=== PATIENT | female | born 1940 | race Caucasian/White ===

== ENCOUNTER 2017-04-19 11:49 | Day surgery (SDC) | payer MEDICARE, BC ==
[2017-04-17 15:20] VITALS: BMI 22.4
[~2017-04-19 11:49] MED LIST: ALBUTEROL NEB (CONC) 2.5 MG/0.5 ML INHALATION ONE; ATROPINE SULFATE 0.4 MG/ML 1 ML VIAL IM ONE; LACTATED RINGERS 1,000 ML IV ONE; LACTATED RINGERS 1,000 ML IV SCH; LIDOCAINE 2% (PF) 20 MG/ML 2 ML AMP INHALATION ONE
[2017-04-19 12:33] LABS: Glucose,Whole Blood 108 mg/dL (75-99)
[2017-04-19 12:43] VITALS: RESP 16; TEMP 99.3
[2017-04-19] MEDS ORDERED: HYDROCORTISONE SUCCINATE 100 MG/2 ML VIAL IVP ONE (12:45)
[2017-04-19] MEDS ORDERED: MIDAZOLAM 2 MG/2 ML VIAL ONE (13:15)
[2017-04-19] MEDS ORDERED: fentaNYL (PF) 50 MCG/ML 2 ML AMP ONE (13:15)
[2017-04-19] MEDS ORDERED: GLYCOPYRROLATE 0.2 MG/ML 2 ML VIAL ONE (13:15)
[2017-04-19] MEDS ORDERED: PROPOFOL 10 MG/ML 20 ML VIAL IV ONE (13:15)
[2017-04-19 13:57] VITALS: BP 168/84; PULSE 98
[2017-04-19 18:13] LABS: Appearance,BF Hazy; Color,BF Red; Nucleated Cells, Body Fluid 160 /uL
[2017-04-19 18:14] LABS: RBC, Body Fluid 6930 /uL
[2017-04-19 18:47] LABS: Mononuclear WBC,Body Fluid 9 %; Polynuclear WBC,Body Fluid 91 %
--- NOTE | 2017-04-19 18:56 | PCN ---
PROCEDURE NOTE PROCEDURE: Bronchoscopy, airway examination, therapeutic lavage, BAL right middle lobe. PREOPERATIVE DIAGNOSIS: Right middle lobe syndrome. POSTOPERATIVE DIAGNOSIS: Normal airway exam. DESCRIPTION OF PROCEDURE: There was informed consent. There was universal timeout. The operators were Dr. Vela and Dr. Parks. PRODUCTION CONTROL EXPEDITER provided unconscious sedation with general anesthesia. The patient's procedure took place in room #2. After the patient was adequately sedated and being fully monitored, the bronchoscope was inserted through the right nostril. It passed through the right nasopharynx into the oropharynx. The hypopharynx was identified and topicalized. The hypopharyngeal structures, including anterior commissure, true cords, false cords, arytenoids, piriform sinuses, right and left valleculae and epiglottis, all appeared normal. There were some secretions noted in the hypopharynx, particularly on the left side. After topicalization, the bronchoscope was pushed through the glottic opening into the trachea. Trachea appeared normal. Tracheal ubaldo was sharp. The right and left mainstem were topicalized. The right upper lobe and its 3 segments, the right middle lobe in its 2 segments, the right lower lobe and its 5 segments, the left upper lobe proper and its 2 segments, the lingula and its 2 segments, and the left lower lobe with its 4 segments all had normal anatomical formation. Of note was the fact that there was no obstruction to the right middle lobe. There were some secretions noted in the right middle lobe. There was no right middle lobe syndrome. There was no tumor obstructing the right middle lobe and there was no deformity of the opening of the right middle lobe or reduced entry diameter which would cause right middle lobe collapse. I suspect it all relates to secretions and mucus. Next the bronchoscope was wedged into the right middle lobe. BAL took place. Additional secretions were removed with the bronchoscope with the assistance of saline lavage. The patient tolerated the procedure well and will be recovered. Pictures were taken for Dr. Ramirez. No additional recommendations are made. MMODL / IJN: [id number] /
== END 2017-04-19 14:51 | disposition home or self-care (01) ==
LOC: ORWHC2ENDO 11:49
PROVIDERS: ATTEND Internal Medicine Critical Care Medicine
DX: J44.1 Chronic obstructive pulmonary disease with (acute) exacerbation (principal); J96.11 Chronic respiratory failure with hypoxia; Z87.891 Personal history of nicotine dependence; J98.11 Atelectasis; K44.9 Diaphragmatic hernia without obstruction or gangrene; K21.9 Gastro-esophageal reflux disease without esophagitis; E03.9 Hypothyroidism, unspecified; R00.0 Tachycardia, unspecified; Z79.82 Long term (current) use of aspirin; Z79.51 Long term (current) use of inhaled steroids; Z79.52 Long term (current) use of systemic steroids; Z79.899 Other long term (current) drug therapy; Z88.1 Allergy status to other antibiotic agents; Z88.5 Allergy status to narcotic agent
CPT/HCPCS: 94640; 87798 ×3; 87496; 87498; 87529; 88108; 88305; 89050; 87252; 87502; 87634; 87070; 87205; 87116; 87102; 87077; 87186; 87206; 31624; J2250; J0461; J1720; J3010; J2704; J2001

== ENCOUNTER 2017-07-19 16:08 | Observation (INO) | payer MEDICARE, BC ==
[2017-07-19] MEDS ORDERED: IPRATROPIUM-ALBUTEROL 3 ML NEB INHALATION PRN (17:07)
--- NOTE | 2017-07-19 17:07 | ED ---
General Adult HPI - General Chief complaint: Shortness of Breath Stated complaint: Lung mass Time Seen by Provider: 07/19/17 16:51 Source: patient, EMS, RN notes reviewed Mode of arrival: EMS Limitations: no limitations - History of Present Illness Initial comments: Patient is a pleasant 77-year-old female presenting to the emergency department as a transfer from [facility]. Patient has felt short of breath for the past 2 days. Patient does have a history of known COPD. No fevers. Patient has been somewhat fatigued. Patient went to the hospital there and found to have questionable mass on chest x-ray. Computed tomography scan did confirm this. In addition patient did have hyponatremia. Patient states she has been dealing intermittently with hyponatremia over the past several months. Patient states she had a normal computed tomography scan of her chest done back in March that was reported as normal. Patient states dyspnea is mild while at rest. - Related Data Home Medications Medication Instructions Recorded Confirmed ALPRAZolam [Xanax] 0.25 mg PO BID 07/06/15 04/17/17 Albuterol Sulfate [Proair Hfa] 2 puff INHALATION RT-Q6H PRN 07/06/15 04/17/17 Budesonide/Formoterol Fumarate 2 puff INHALATION RT-BID 07/06/15 04/17/17 [Symbicort 160-4.5 Mcg Inhaler] Calcium Carbonate [Calcium] 500 mg PO DAILY 07/06/15 04/17/17 Latanoprost [Xalatan 0.005%] 1 drop BOTH EYES HS 07/06/15 04/17/17 Tiotropium [place] [Spiriva] 1 puff INHALATION RT-DAILY@1200 07/06/15 04/17/17 Diltiazem HCl 30 mg PO BID 09/09/15 04/17/17 Cholecalciferol (Vitamin D3) 2,000 unit PO DAILY 04/17/17 04/17/17 [Vitamin D3] Ipratropium-Albuterol Nebulize 3 ml INHALATION QID 04/17/17 04/17/17 [Duoneb 0.5 mg-3 mg/3 ml Soln] Levothyroxine Sodium [Levoxyl] 112 mcg PO DAILY 04/17/17 04/17/17 Alendronate Sodium [Fosamax] 70 mg PO WE 07/19/17 07/19/17 Aspirin [Adult Low Dose Aspirin EC] 81 mg PO DAILY 07/19/17 07/19/17 Selenium 200 mcg PO DAILY 07/19/17 07/19/17 Timolol 0.5% Ophth Soln [Timoptic 1 drop BOTH EYES BID 07/19/17 07/19/17 0.5% Ophth Soln] Allergies Allergy/AdvReac Type Severity Reaction Status Date / Time doxycycline Allergy SICK, DIZZY Verified 07/19/17 17:01 morphine Allergy Nausea & Verified 07/19/17 17:01 Vomiting Review of Systems ROS Statement: Those systems with pertinent positive or pertinent negative responses have been documented in the HPI. ROS Other: All systems not noted in ROS Statement are negative. Constitutional: Denies: fever Eyes: Denies: eye pain ENT: Denies: ear pain Respiratory: Reports: dyspnea Cardiovascular: Denies: chest pain Endocrine: Reports: fatigue Gastrointestinal: Denies: abdominal pain Genitourinary: Denies: dysuria Musculoskeletal: Denies: back pain Skin: Denies: rash Neurological: Denies: headache Past Medical History Past Medical History: COPD, Eye Disorder, GERD/Reflux, Skin Disorder, Thyroid Disorder Additional Past Medical History / Comment(s): HX TACHYCARDIA. GLAUCOMA NILS. Hiatal Hernia. Using Oxygen, 2L NC PRN. RECENT EXAC OF COPD. ABRASIONS TO RLL. History of Any Multi-Drug Resistant Organisms: MRSA Date of last positivie culture/infection: 04/19/17 MDRO Source:: BRONCH WASH Past Surgical History: Adenoidectomy, Appendectomy, Hernia Repair, Hysterectomy , Orthopedic Surgery, Tonsillectomy Additional Past Surgical History / Comment(s): Nils Cataract, RT Torn Rotator Cuff Repair, Nasal Surgery, 01-07-16 lap viktoria fundoplasty Past Anesthesia/Blood Transfusion Reactions: No Reported Reaction Past Psychological History: Anxiety Smoking Status: Former smoker Past Alcohol Use History: Rare Past Drug Use History: None Reported - Past Family History Mother Family Medical History: CVA/TIA Father Family Medical History: Hypertension, Myocardial Infarction ([place]) Brother(s) Family Medical History: Cancer Additional Family Medical History / Comment(s): X3 BROTHERS General Exam Limitations: no limitations General appearance: alert, in no apparent distress Head exam: Present: atraumatic Eye exam: Present: normal appearance, PERRL ENT exam: Present: normal oropharynx Neck exam: Present: normal inspection Respiratory exam: Present: decreased breath sounds Cardiovascular Exam: Present: regular rate, normal rhythm GI/Abdominal exam: Present: soft. Absent: tenderness Extremities exam: Present: pedal edema (+1 bilateral). Absent: calf tenderness Back exam: Present: normal inspection Neurological exam: Present: alert Psychiatric exam: Present: normal affect, normal mood Skin exam: Present: normal color Course Vital Signs 07/19/17 16:11 Temperature 97.8 F Pulse Rate 101 H Respiratory 20 Rate Blood Pressure 155/79 O2 Sat by Pulse 93 L Oximetry - Reevaluation(s) Reevaluation #1: 07/19/17 17:07 CT report is not present at this time and we are contacting [facility] to have this faxed. Dr. palumbo has been paged for admission for hospital call. 07/19/17 17:11 Case was discussed with Dr. palumbo, who will admit. Disposition Clinical Impression: Dyspnea, Lung mass, Hyponatremia Disposition: ADMITTED IP TO THIS HOSP Is patient prescribed a controlled substance at d/c from ED?: No Referrals: Zeb Brar MD [Primary Care Provider] - 1-2 days Decision Time: 17:07
[2017-07-19] MEDS ORDERED: SODIUM CHLORIDE 0.9% 1,000 ML IV SCH (17:15)
[2017-07-19] MEDS ORDERED: methylPREDNISolone SOD SUCCI 125 MG/2 ML VIAL IV SCH (18:00)
[2017-07-19] MEDS ORDERED: IPRATROPIUM-ALBUTEROL 3 ML NEB INHALATION SCH (20:00)
[2017-07-19 20:04] LABS: Glucose,Whole Blood 265 mg/dL (75-99)
[2017-07-19 21:37] VITALS: RESP 16
[2017-07-19] MEDS: INSULIN ASPART 100 UNIT/ML 1 ML 10 ML VIAL SQ SCH (21:39)
[2017-07-19] MEDS ORDERED: LATANOPROST 0.005% OPHTH DROPS 2.5 ML BTL BOTH EYES SCH (22:45)
--- NOTE | 2017-07-19 23:26 | HP ---
HISTORY AND PHYSICAL DATE OF SERVICE: July 19, 2017. PRESENTING COMPLAINT: Short of breath. HISTORY OF PRESENTING COMPLAINT: This is a pleasant 77-year-old patient of Dr. Verma whose chronic stable medical conditions include GERD, hypothyroid, COPD. The patient has had low sodium for about 3 months. Has been given salt tablets. The patient presented here from [facility]. The patient has been having shortness of breath for 1 day. Some wheezing just felt funny. Slight cough. No phlegm. No fever. No chills. Appetite has been okay. CT scan did show a lung mass. Patient did say that she had a previous CT scan that was unremarkable. Hence patient was transferred down here. Patient put on IV Solu-Medrol and nebulized bronchodilators for COPD exacerbation. Pulmonary was consulted. The patient does feel a bit tired. REVIEW OF SYSTEMS: Constitutional tired. HEENT none. Respiratory as above. Cardiovascular none. Gastrointestinal heartburn. Genitourinary: None. Musculoskeletal: None. Dermatologic, hematologic, lymphatic none. Psychiatry none. Neurological generalized weakness. PAST MEDICAL HISTORY: COPD, MRSA infection in the lung, GERD, hypothyroid, hyponatremia. Additional past medical history, uses oxygen 2 L p.r.n., glaucoma, bilateral. PAST SURGICAL HISTORY: Adenoidectomy, appendectomy, hernia repair, hysterectomy, tonsillectomy, bilateral cataract, right torn rotator cuff, Josue fundoplasty, bronchoscopy in April of this year. SOCIAL HISTORY: The patient smoked for close to 49 years about a pack a day, stopped in 2007. Alcohol rarely. Lives with her . FAMILY HISTORY: Three brothers had cancer. HOME MEDICATIONS: 1. Timolol 0.5% 1 drop to both eyes b.i.d. 2. Fosamax 70 mg on Monday. 3. Selenium 200 mcg a day. 4. Aspirin 81 mg a day. 5. Spiriva 1 puff daily. 6. Levoxyl 112 mcg a day. 7. Xalatan 0.05% 1 drop to both eyes q.h.s. 8. DuoNeb q.i.d. 9. Diltiazem 30 mg b.i.d. 10.Vitamin D3 2000 units p.o. daily. 11.Calcium 500 mg p.o. daily. 12.Symbicort 160/4.5, 2 puffs b.i.d. 13.Xanax 0.25 b.i.d. 14.Albuterol 2 puffs q.6h p.r.n. ALLERGIES: TO DOXYCYCLINE AND MORPHINE. PHYSICAL EXAMINATION: Temperature 96.7, pulse 99, respiration 16, blood pressure 120/60, pulse ox 99% on room air. General appearance: Average built, sitting up, tired appearing. Eyes pupils are equal. Conjunctivae normal. HEENT: External appearance of nose and ears normal. Oral cavity normal. Neck JVD not raised. Mass not palpable. Respiratory effort increased. LUNGS: Diminished breath sounds prolonged expiration. Cardiovascular 1st and 2nd sounds normal, no edema. ABDOMEN: Soft, nontender. Liver and spleen not palpable. Lymphatics: No lymph nodes palpable in the neck and axilla. PSYCHIATRY: Alert and oriented x3. Mood and affect normal. Neurological: Pupils equal. Cranial nerves grossly intact. Power and sensation grossly intact. INVESTIGATIONS: I do not have the blood work in front of me. CT chest was to show a mass. ASSESSMENT: 1. Acute chronic obstructive pulmonary disease exacerbation in an ex-smoker. 2. Gastroesophageal reflux disease. 3. Anxiety not otherwise specified. 4. Hyponatremia could be SIADH from the malignancy. 5. Lung mass suspicious for malignancy. PLAN: Pulmonary was consulted. Home medications are resumed. Patient is put on bronchodilators steroids. Once I will have the results I will discuss with her especially after the patient is seen by Pulmonary. Copy to Dr. Verma. In the meantime, patient will be put on fluid restriction. We will check serum urine osmolality and avoid free fluids. MMODL / IJN: [id number] /
[2017-07-19 23:39] LABS: Basophils % (A) 0 %; Eosinophils % (A) 0 %; HCT 39.4 % (34.0-46.0); HGB 12.9 gm/dL (11.4-16.0); Lymphocytes # (A) 0.3 k/uL (1.0-4.8); Lymphocytes % (A) 3 %; MCHC 32.6 g/dL (31.0-37.0); MCV 101.1 fL (80.0-100.0); Mean Platelet Volume 6.3; Monocytes # (A) 0.2 k/uL (0-1.0); Monocytes % (A) 2 %; Neutrophils # (A) 8.6 k/uL (1.3-7.7); Neutrophils % (A) 94 %; Platelet Count 354 k/uL (150-450); RBC 3.89 m/uL (3.80-5.40); RDW 12.8 % (11.5-15.5); WBC 9.1 k/uL (3.8-10.6)
[2017-07-19 23:51] LABS: ALT 51 U/L (9-52); AST 42 U/L (14-36); Albumin 3.4 g/dL (3.5-5.0); Alkaline Phosphatase 46 U/L (38-126); Anion Gap 13 mmol/L; Blood Urea Nitrogen 13 mg/dL (7-17); Calcium 9.3 mg/dL (8.4-10.2); Carbon Dioxide 25 mmol/L (22-30); Chloride 94 mmol/L (98-107); Glucose 158 mg/dL (74-99); Potassium 3.8 mmol/L (3.5-5.1); Sodium 132 mmol/L (137-145); Total Bilirubin 0.2 mg/dL (0.2-1.3); Total Protein 6.4 g/dL (6.3-8.2)
[2017-07-19] MEDS: ALPRAZolam 0.25 MG TAB PO SCH (23:57)
[2017-07-19] MEDS: DILTIAZEM ORAL 30 MG TAB PO SCH (23:58)
[2017-07-19] MEDS: TIMOLOL 0.5% OPHTH DROPS 5 ML BTL BOTH EYES SCH (23:58)
[2017-07-19] MEDS: methylPREDNISolone SOD SUCCI 40 MG/ML 1 ML VIAL IV SCH (23:59)
[2017-07-20] MEDS: IPRATROPIUM-ALBUTEROL 3 ML NEB INHALATION SCH ×6 (00:50→11:25)
[2017-07-20] MEDS ORDERED: LEVOTHYROXINE 112 MCG TAB PO SCH (06:30)
[2017-07-20 07:07] LABS: Glucose,Whole Blood 188 mg/dL (75-99)
[2017-07-20] MEDS: TIMOLOL 0.5% OPHTH DROPS 5 ML BTL BOTH EYES SCH (07:41)
[2017-07-20] MEDS: INSULIN ASPART 100 UNIT/ML 1 ML 10 ML VIAL SQ SCH ×2 (07:41→12:37)
[2017-07-20] MEDS: ALPRAZolam 0.25 MG TAB PO SCH (07:42)
[2017-07-20] MEDS: DILTIAZEM ORAL 30 MG TAB PO SCH (07:42)
[2017-07-20] MEDS: methylPREDNISolone SOD SUCCI 40 MG/ML 1 ML VIAL IV SCH (07:42)
--- NOTE | 2017-07-20 08:13 | XR ---
EXAMINATION TYPE: XR chest 2V DATE OF EXAM: 07/20/2017 COMPARISON: 07/19/2017 TECHNIQUE: PA and lateral views submitted. HISTORY: Cough and pneumonia FINDINGS: Right hilar mass or adenopathy suggested. Vascular crowding at the lung bases secondary to emphysemat ous changes noted. No obvious pneumothorax. Hypertrophic and degenerative change of the spine. There is an area of consolidation noted on the lateral view suggestive of an area of infiltrate overlying t he heart. Most likely in the right middle lobe. IMPRESSION: 1. Right hilar soft tissue mass. 2. Severe COPD with right middle lobe area of atelectasis or infiltrate.
[2017-07-20 08:39] VITALS: BP 115/53; TEMP 98
[2017-07-20] MEDS ORDERED: ASPIRIN 81 MG PO SCH (09:00)
[2017-07-20] MEDS ORDERED: SODIUM CHLORIDE TAB 1 GM TAB PO SCH (09:00)
[2017-07-20 11:14] VITALS: PULSE 76
[2017-07-20 11:35] LABS: Glucose,Whole Blood 136 mg/dL (75-99)
--- NOTE | 2017-07-20 11:58 | P.CNPUL ---
History of Present Illness Consult date: 07/20/17 Requesting physician: Saad Perez Reason for consult: dyspnea Chief complaint: Shortness of breath History of present illness: This is a very pleasant 77-year-old female patient who follows with Dr. Verma as her primary care physician. She has a history of hypothyroidism, gastroesophageal reflux disease, diaphragmatic hernia, peripheral edema, tachycardia or chills and has a 40+ pack per year smoking history and has oxygen dependent chronic obstructive pulmonary disease with an FEV1 value of 41 % of predicted. She follows with Dr. Ramirez in our office for the same. She had recently undergone bronchoscopy with BAL in April 2017 was found to have a MRSA lung infection was treated with IV antibiotics via PICC line. She is also had admissions for hypo-natremia. A computed tomography scan of the chest done at [facility] in March 2017 showed extensive centrilobular emphysema in addition to atelectasis and lateral segment of the right middle lobe without any evidence of obstructive pathology. No mediastinal lymphadenopathy. That CT was done without contrast. She had her sodium tablets discontinued by Dr. Ramirez recently as her sodium level had improved. She presented to [place] emergency room yesterday with complaints of increasing shortness of breath, weakness and fatigue. Her sodium was back down to 123. Computed tomography scan of the chest was performed and now reveals a 3.2 cm superior aspect right hilar lesion with small associated adenopathy suspicious for primary lung neoplasm. There is also noted diffuse emphysema. Chronic right middle lobe collapse. She is seen today on the regular medical floor and consultation. She is currently awake and alert in no acute distress. She is currently maintaining O2 saturations in the 90s on room air. She's been afebrile. Current sodium 132. Serum osmolality 277. Urine osmolality 229. Her weight has been stable. No hemoptysis. Review of Systems Eyes: denies blurred vision, denies decreased vision Ears: bilateral: decreased hearing Ears, nose, mouth and throat: Reports dental pain, Reports sore throat Cardiovascular: Reports decreased exercise tolerance, Reports dyspnea on exertion, Reports shortness of breath Respiratory: Reports congestion, Reports cough, Reports dyspnea, Reports home oxygen, Reports wheezing Gastrointestinal: Denies abdominal pain, Denies diarrhea, Denies nausea, Denies vomiting Genitourinary: Denies dysuria, Denies hematuria Musculoskeletal: Reports morning stiffness Integumentary: Reports color changes Neurological: Reports balance difficulties, Reports weakness Endocrine: Reports fatigue Hematologic/Lymphatic: Reports easy bruising Past Medical History Past Medical History: COPD, Eye Disorder, GERD/Reflux, Skin Disorder, Thyroid Disorder Additional Past Medical History / Comment(s): HX TACHYCARDIA. GLAUCOMA PETRA. hxHiatal Hernia. Using Oxygen, 2L NC PRN. RECENT EXAC OF COPD. low sodium History of Any Multi-Drug Resistant Organisms: MRSA Date of last positivie culture/infection: 04/19/17 MDRO Source:: BRONCH WASH Past Surgical History: Adenoidectomy, Appendectomy, Hernia Repair, Hysterectomy , Orthopedic Surgery, Tonsillectomy Additional Past Surgical History / Comment(s): Petra Cataract, RT Torn Rotator Cuff Repair, Nasal Surgery, 01-07-16 lap viktoria fundoplasty, bronchoscopy 04-19-17 Past Anesthesia/Blood Transfusion Reactions: No Reported Reaction Smoking Status: Former smoker - Past Family History Mother Family Medical History: CVA/TIA Father Family Medical History: Hypertension, Myocardial Infarction ([place]) Brother(s) Family Medical History: Cancer Additional Family Medical History / Comment(s): X3 BROTHERS Medications and Allergies Home Medications Medication Instructions Recorded Confirmed Type ALPRAZolam [Xanax] 0.25 mg PO BID 07/06/15 07/19/17 History Albuterol Sulfate [Proair Hfa] 2 puff INHALATION RT-Q6H PRN 07/06/15 07/19/17 History Budesonide/Formoterol Fumarate 2 puff INHALATION RT-BID 07/06/15 07/19/17 History [Symbicort 160-4.5 Mcg Inhaler] Calcium Carbonate [Calcium] 500 mg PO DAILY 07/06/15 07/19/17 History Latanoprost [Xalatan 0.005%] 1 drop BOTH EYES HS 07/06/15 07/19/17 History Tiotropium [place] [Spiriva] 1 puff INHALATION RT-DAILY@1200 07/06/15 07/19/17 History Diltiazem HCl 30 mg PO BID 09/09/15 07/19/17 History Cholecalciferol (Vitamin D3) 2,000 unit PO DAILY 04/17/17 07/19/17 History [Vitamin D3] Ipratropium-Albuterol Nebulize 3 ml INHALATION RT-QID 04/17/17 07/19/17 History [Duoneb 0.5 mg-3 mg/3 ml Soln] Levothyroxine Sodium [Levoxyl] 112 mcg PO DAILY 04/17/17 07/19/17 History Alendronate Sodium [Fosamax] 70 mg PO WE 07/19/17 07/19/17 History Aspirin [Adult Low Dose Aspirin EC] 81 mg PO DAILY 07/19/17 07/19/17 History Nystatin 10 ml PO QID 07/19/17 07/19/17 History Selenium 200 mcg PO DAILY 07/19/17 07/19/17 History Sodium Chloride Tab 1 gram PO BID 07/19/17 07/19/17 History Timolol 0.5% Ophth Soln [Timoptic 1 drop BOTH EYES BID 07/19/17 07/19/17 History 0.5% Ophth Soln] Allergies Allergy/AdvReac Type Severity Reaction Status Date / Time doxycycline Allergy SICK, DIZZY Verified 07/19/17 17:01 morphine Allergy Nausea & Verified 07/19/17 17:01 Vomiting Physical Exam Vitals: Vital Signs Temp Pulse Pulse Resp BP BP Pulse Ox 07/20/17 11:14 76 07/20/17 07:57 98.0 F 89 16 115/53 97 07/20/17 07:00 94 L 07/20/17 00:29 73 120/67 07/19/17 21:36 96.7 F L 99 16 128/68 99 07/19/17 19:56 76 07/19/17 19:40 78 99 07/19/17 17:47 98 18 127/68 98 07/19/17 16:11 97.8 F 101 H 20 155/79 93 L Intake and Output 07/19/17 07/20/17 07/20/17 22:59 06:59 14:59 Intake Total 350 400 Balance 350 400 Intake: Intake, IV Titration 400 Amount Sodium Chloride 0.9% 1, 400 000 ml @ 100 mls/hr IV . Q10H [facility] Rx#:[id number] Oral 350 Other: Voiding Method Toilet Toilet # Voids 2 1 Weight 56.5 kg 56.5 kg - Constitutional General appearance: cooperative, no acute distress, thin - EENT Eyes: PERRLA, poor dentition ENT: hard of hearing Ears: bilateral: normal - Neck Neck: normal ROM Carotids: bilateral: upstroke normal Thyroid: bilateral: normal size - Respiratory Respiratory: bilateral: diminished, wheezing - Cardiovascular Rhythm: regular Heart sounds: normal: S1, S2 - Gastrointestinal General gastrointestinal: normal bowel sounds, soft - Integumentary Integumentary: decreased turgor - Neurologic Neurologic: CNII-XII intact - Musculoskeletal Musculoskeletal: generalized weakness - Psychiatric Psychiatric: A&O x's 3 Results - Laboratory Findings CBC and BMP: 07/19/17 23:20 07/19/17 23:20 Abnormal lab findings: Abnormal Labs 07/19/17 07/19/17 07/19/17 20:02 23:20 23:20 MCV 101.1 H Neutrophils # 8.6 H Lymphocytes # 0.3 L Sodium 132 L Chloride 94 L Creatinine 0.50 L Glucose 158 H POC Glucose (mg/dL) 265 H Osmolality 277 L AST 42 H Albumin 3.4 L 07/20/17 07:03 MCV Neutrophils # Lymphocytes # Sodium Chloride Creatinine Glucose POC Glucose (mg/dL) 188 H Osmolality AST Albumin - Diagnostic Findings Chest x-ray: image reviewed CT scan - chest: image reviewed Assessment and Plan Assessment: Impression: #1 Acute on chronic hypoxic respiratory failure secondary to an acute exacerbation of chronic obstructive pulmonary disease. Oxygen dependent. Treated with Symbicort, Spiriva and DuoNeb's in the outpatient setting. FEV1 value of 41% of predicted. #2 Weakness and fatigue secondary to hyponatremia. Previous admission for hyponatremia. #3 Right hilar mass measuring 3.2 cm with small associated adenopathy suspicious for primary lung neoplasm. #4 Chronic right middle lobe collapse. #5 Recent MRSA lung infection from BAL of bronchoscopy in April 2017. Treated with IV antibiotics in the outpatient setting #6 40 year pack per day smoking history. #7 Gastroesophageal reflux disease. #8 Diaphragmatic hernia. #9 Tachycardia. #10 Hypothyroidism. #11 Oral candidiasis. Plan: The patient was seen and evaluated by Dr. Quiñones. Her chest x-ray, CAT scan and labs were all reviewed. Her sodium is being corrected. She is on IV Solu- Medrol, DuoNeb inhalations will add Pulmicort and Perforomist inhalations. No clear indication for antibiotics at this time. She may need further investigation regarding the new right hilar mass however her overall pulmonary status is quite poor and she may not be a good candidate for further intervention or treatment. We'll have further discussion with the patient and her once he arrives. In the interim we'll continue to follow and make further recommendations based on her clinical status. I, the cosigning physician, performed a history & physical examination of the patient. Lungs sounds bilateral end expiratory wheeze. Diminished throughout. Maintaining good O2 saturations in the 90s on room air. I discussed the assessment and plan of care with my nurse practitioner, Kandace Parks. I attest to the above consultation as dictated by her. Time with Patient: Greater than 30
[2017-07-20 12:17] LABS: Hemoglobin A1C 5.7 % (4.0-6.0)
[2017-07-20] MEDS ORDERED: NYSTATIN 100,000 UNIT/ML SUSP 500,000 UNIT/5 ML CUP PO SCH (13:00)
--- NOTE | 2017-07-21 07:25 | DS ---
DISCHARGE SUMMARY DATE OF ADMISSION: 07/18/17 DATE OF DISCHARGE: 07/20/17 FINAL DIAGNOSES: 1. Acute chronic obstructive pulmonary disease exacerbation in an ex-smoker. 2. Right lung mass with adenopathy to be followed by Dr. Ramirez as an outpatient. 3. Gastroesophageal reflux disease. 4. Anxiety not otherwise specified. 5. Hyponatremia suspected from [facility]. HOSPITAL COURSE: This patient was transferred here from [facility] being followed by Dr. Verma with COPD exacerbation. CT scan had shown a lung mass lung mass. The patient is seen by Dr. Quiñones today. The patient will have a bronchoscopy by Dr. Ramirez as an outpatient. Symptoms are greatly improved. The patient has a sodium of 132 with low osmolality. The patient is put on a fluid restriction diet. Care was discussed the patient and . PHYSICAL EXAMINATION: Lungs improved air entry. Cardiovascular 1st and 2nd sounds normal. Psych AO x3. CONSULTATION: Dr. Quiñones from Pulmonary, who has okayed the patient to be discharged. DISCHARGE MEDICATIONS: 1. Xanax 0.25 p.o. b.i.d. 2. ProAir 2 puffs q.6h p.r.n. 3. Symbicort 160/4.5, 2 puffs b.i.d. 4. Calcium 500 mg p.o. daily. 5. Xalatan 0.005% 1 drop to both eyes at bedtime. 6. Spiriva 1 puff daily. 7. Cardizem 30 mg b.i.d. 8. DuoNeb q.i.d. 9. Levoxyl 112 mcg p.o. daily. 10.Fosamax 70 mg on Monday. 11.Aspirin 81 mg daily. 12.Nystatin topical q.i.d. 13.Selenium 200 mcg p.o. daily. 14.Sodium 1 g p.o. b.i.d. 15.Timoptic 0.5% 1 drop to both eyes b.i.d. FOLLOW UP: Follow up with Dr. Verma in 3 days, follow up with Dr. Ramirez on August 15, 2017. Fluids restriction 1800 mL a day. Patient told to avoid tea, coffee and water. Copy to Dr. Verma. MMODL / IJN: [id number] /
== END 2017-07-20 15:15 | disposition home or self-care (01) ==
LOC: EC 16:08 → 5MS5E 17:07 → INTOOBSV 17:07 → 5MS5E 17:56
PROVIDERS: ADMIT Hospitalist; ATTEND Hospitalist
DX: J44.1 Chronic obstructive pulmonary disease with (acute) exacerbation (principal); R91.8 Other nonspecific abnormal finding of lung field; R59.9 Enlarged lymph nodes, unspecified; E87.1 Hypo-osmolality and hyponatremia; K21.9 Gastro-esophageal reflux disease without esophagitis; J96.21 Acute and chronic respiratory failure with hypoxia; F41.9 Anxiety disorder, unspecified; R00.0 Tachycardia, unspecified; E03.9 Hypothyroidism, unspecified; J98.19 Other pulmonary collapse; J43.2 Centrilobular emphysema; B37.0 Candidal stomatitis; K44.9 Diaphragmatic hernia without obstruction or gangrene; Z86.14 Personal history of Methicillin resistant Staphylococcus aureus infection; H40.9 Unspecified glaucoma; Z79.899 Other long term (current) drug therapy; Z79.51 Long term (current) use of inhaled steroids; Z79.890 Hormone replacement therapy; Z79.82 Long term (current) use of aspirin; Z79.83 Long term (current) use of bisphosphonates; Z88.5 Allergy status to narcotic agent; Z88.1 Allergy status to other antibiotic agents; Z99.81 Dependence on supplemental oxygen; Z87.891 Personal history of nicotine dependence; Z82.49 Family history of ischemic heart disease and other diseases of the circulatory system; Z82.3 Family history of stroke; Z98.890 Other specified postprocedural states
CPT/HCPCS: 99285 ×2; 96376 ×2; 96374; 94640 ×2; 94760 ×2; 83930; 80053; 85025; 83935; 83036; 71046; G0378 ×3; J2920 ×2; J2930

== ENCOUNTER 2017-08-02 11:31 | Day surgery (SDC) | payer MEDICARE, BC ==
[2017-08-01 09:30] VITALS: BMI 23.2
[~2017-08-02 11:31] MED LIST changes: -ATROPINE SULFATE 0.4 MG/ML 1 ML VIAL IM ONE; -LACTATED RINGERS 1,000 ML IV ONE; +Pre Op ABX Message 1 EACH MISC MISCELLANE ONE
[2017-08-02 11:46] VITALS: TEMP 98
[2017-08-02] MEDS ORDERED: LACTATED RINGERS 1,000 ML IV ONE (11:47)
[2017-08-02] MEDS ORDERED: LIDOCAINE 1% 20 ML VIAL (10MG/ML) FOR IV START INTRADERMA ONE (11:58)
[2017-08-02] MEDS ORDERED: KETAMINE 10 MG/ML 20 ML VIAL ONE (12:46)
[2017-08-02] MEDS ORDERED: LIDOCAINE 1% INJ 10MG/ML (20 ML MDV) ONE (12:46)
[2017-08-02] MEDS ORDERED: PROPOFOL 10 MG/ML 20 ML VIAL IV ONE (12:46)
--- NOTE | 2017-08-02 13:35 | P.PCN ---
Date of Procedure: 08/02/17 Preoperative Diagnosis: right hilar mass Postoperative Diagnosis: right hilar mass Procedure(s) Performed: bronchoscopy (flexible), BAL, EBBx and TBNA of right hilar mass Anesthesia: MAC Surgeon: Alonzo Ramirez [employer] Tank Builder #1: Kandace Parks Estimated Blood Loss (ml): 20 Pathology: other Condition: stable Disposition: same day Operative Findings: This procedure was done and the bronchoscopy suite under conscious sedation. After achieving adequate sedation the flexible bronchoscope was inserted through the right nostril was advanced upper airway. Examination the posterior oropharynx, larynx, epiglottis, vallecula vocal cords was done. There was copious amount of thick purulent respiratory secretions and evidence of oropharyngeal candidiasis and laryngeal candidiasis. Vocal cord function mobility was within normal limits. A total of 2 mL of 1% lidocaine was applied to the vocal cords and following that the bronchoscope was advanced with Doppler trachea. Examination tracheobronchial was done. Similar type of rest or secretions also identified throughout the tracheobronchial tree. Therapeutic aspiration was done and 60-year-old removed. Airways inspection was completed. Bilateral mainstem bronchi were patent and within normal limits. The apical segment of the right upper lobe was occluded and extensively compressed and suspected endobronchial tumor within that segment. The anterior and the posterior segments were patent. Examination of the bronchus intermedius and the various segments of the right lower lobe in addition to the examination of the left mainstem bronchus and the left upper lobe bronchus and the left lower lobe bronchus were all within normal limits. At this point in time, transbronchial needle aspirate of the right hilar lesion was done through the anterior wall of the right mainstem bronchus. I also performed endobronchial biopsies of the apical segment of the right upper lobe and endobronchial brushings and bronchial lavage were total of 60 mL of fluid was infused and 30 mL of fluid was aspirated. Note that during this procedure, the patient had an encounter some endobronchial bleeding from the right upper lobe and an estimated blood loss was in the order of 20 mL. The bleeding stopped spontaneously without any intervention. Therapeutic airway suctioning was done. Bronchoscope was removed and the patient was transferred recovery in stable condition. Chest x-ray showed no evidence of any pneumothorax. We'll continue to follow and the patient was discharged home today if clinically stable back in approximately to discuss the results.
[2017-08-02] MEDS ORDERED: ALBUTEROL NEBULIZED 2.5 MG/3 ML INHALATION STA ×2 (13:48→13:58)
--- NOTE | 2017-08-02 14:07 | XR ---
EXAMINATION TYPE: XR chest 1V portable DATE OF EXAM: 08/02/2017 COMPARISON: Prior chest x-ray 07/20/2017 HISTORY: Status post bronchoscopy, right upper lobe biopsy TECHNIQUE: Single frontal view of the chest is obtained. FINDINGS: Exam is expiratory. Prior. Interstitial changes again noted. There is artifact, overlying device at the level of the right lung apex. No evident pneumothorax or pleural effusion. Nodular appe arance of the right hilum again noted. IMPRESSION: No complication status post biopsy, detail at the apex may be obscured, follow-up as ind icated.
[2017-08-02 14:27] VITALS: BP 136/84; PULSE 91; RESP 20
--- NOTE | 2017-08-03 10:59 | FL ---
EXAMINATION TYPE: FL bronchoscopy DATE OF EXAM: 08/02/2017 COMPARISON: NONE HISTORY: Right upper lobe biopsy Fluoroscopy support supplied to the referring clinician. See dictated report from pulmonary, 18 seco nds fluoroscopy time, 2 intraoperative images document the procedure
== END 2017-08-02 14:44 | disposition home or self-care (01) ==
LOC: ORWHC2ENDO 11:31
PROVIDERS: ATTEND Internal Medicine Critical Care Medicine
DX: C34.01 Malignant neoplasm of right main bronchus (principal); C34.11 Malignant neoplasm of upper lobe, right bronchus or lung; J44.9 Chronic obstructive pulmonary disease, unspecified; J98.11 Atelectasis; R60.9 Edema, unspecified; K21.9 Gastro-esophageal reflux disease without esophagitis; E03.9 Hypothyroidism, unspecified; E87.1 Hypo-osmolality and hyponatremia; J96.11 Chronic respiratory failure with hypoxia; K44.9 Diaphragmatic hernia without obstruction or gangrene; R00.0 Tachycardia, unspecified; F41.9 Anxiety disorder, unspecified; Z99.81 Dependence on supplemental oxygen; Z86.14 Personal history of Methicillin resistant Staphylococcus aureus infection; Z87.891 Personal history of nicotine dependence; Z79.82 Long term (current) use of aspirin; Z79.51 Long term (current) use of inhaled steroids; Z79.52 Long term (current) use of systemic steroids; Z79.899 Other long term (current) drug therapy; Z88.5 Allergy status to narcotic agent; Z88.1 Allergy status to other antibiotic agents
CPT/HCPCS: 94640 ×2; 88104; 88108; 88305; 88173; 88342; 88341; 71045; 31629; 31625; 31623; 31624; J2001 ×2; J2704

== ENCOUNTER → 2017-09-02 | Outpatient (CLI) | payer MEDICARE, BC ==
--- NOTE | 2017-09-03 12:51 | PE ---
Nuclear medicine PET/CT HISTORY: Lung carcinoma, initial Patient received 11.4 mCi F-18 FDG intravenously in delayed scanning was performed the skull base to the mid thighs. Localization and attenuation correction CT scan was performed. Exam correlated to CT chest 07/19/2017 from outside institution Neck and chest: There is no evident cervical adenopathy, no suspicious hypermetabolic uptake within t he neck. Right suprahilar soft tissue mass measures approximately 3.8 cm in greatest transverse dimension, sim ilar to prior of 3.5 cm and shows hypermetabolic uptake, SUV 13.8. The lesion abuts the mediastinum m edially as well as the region of the superior vena cava and right mainstem bronchus Small areas hyper metabolic uptake are present distal to the lesion possibly due to postobstructive atelectatic changes . There is some right middle lobe atelectatic change as on prior. No evident mediastinal or axillary, hilar adenopathy. Coronary artery calcifications are present. There are emphysematous changes within the lungs. Abdomen pelvis: There is no evident adrenal mass, no retroperitoneal mass. No suspicious hypermetabol ic uptake within the abdomen. Osseous structures show degenerative disc changes in the lumbar spine. No suspicious hypermetabolic u ptake. IMPRESSION: Findings compatible with patient's history of bronchogenic carcinoma as described. Emphys carmen, coronary artery disease.
== END | disposition home or self-care (01) ==
LOC: RADPETMAIN 17:38
PROVIDERS: ATTEND Internal Medicine Hematology & Oncology
DX: C34.01 Malignant neoplasm of right main bronchus (principal); J43.9 Emphysema, unspecified; I25.10 Atherosclerotic heart disease of native coronary artery without angina pectoris
CPT/HCPCS: 78815; A9552

== ENCOUNTER 2017-09-06 17:34 | Inpatient (IN) | payer MEDICARE, BC ==
[2017-09-06 18:10] LABS: Basophils % (A) 0 %; Eosinophils # (A) 0.1 k/uL (0-0.7); Eosinophils % (A) 1 %; HCT 37.4 % (34.0-46.0); HGB 11.8 gm/dL (11.4-16.0); Lymphocytes # (A) 1.2 k/uL (1.0-4.8); Lymphocytes % (A) 13 %; MCH 31.7 pg (25.0-35.0); MCHC 31.5 g/dL (31.0-37.0); MCV 100.7 fL (80.0-100.0); Macrocytosis Slight; Mean Platelet Volume 6.2; Monocytes # (A) 0.9 k/uL (0-1.0); Monocytes % (A) 10 %; Neutrophils # (A) 7.1 k/uL (1.3-7.7); Neutrophils % (A) 75 %; Platelet Count 632 k/uL (150-450); RBC 3.72 m/uL (3.80-5.40); RDW 13.8 % (11.5-15.5); WBC 9.4 k/uL (3.8-10.6)
[2017-09-06 18:13] LABS: Anion Gap 11 mmol/L; Blood Urea Nitrogen 5 mg/dL (7-17); Calcium 9.1 mg/dL (8.4-10.2); Carbon Dioxide 28 mmol/L (22-30); Chloride 98 mmol/L (98-107); Glucose 124 mg/dL (74-99); Magnesium 1.9 mg/dL (1.6-2.3); Potassium 3.9 mmol/L (3.5-5.1); Sodium 137 mmol/L (137-145)
[2017-09-06] MEDS: DILTIAZEM 50 MG in SODIUM CHLORIDE 0.9% 40 ML IV SCH ×2 (18:15→21:55)
[2017-09-06] MEDS ORDERED: SODIUM CHLORIDE 0.9% 500 ML IV STA (18:15)
--- NOTE | 2017-09-06 18:50 | ED ---
General Adult HPI - General Chief complaint: Dizziness Stated complaint: Dizziness Source: patient Mode of arrival: EMS Limitations: no limitations - History of Present Illness Initial comments: HPI Macro Chief Complaint: 77-year-old female past medical history of lung carcinoma, COPD, GERD, hiatal hernia presents via EMS as transfer from outside facility for cardiac arrhythmia. History of Present Illness: Patient presents to outside facility for dizziness that started today while she was cleaning her house. Patient was recently diagnosed with lung mass concerning for lung cancer. She has recently had a PET scan performed. She has a follow-up appointment with her commercial attorney. Patient complains of some mild shortness of breath that is worsened with exertion. Denies any history of blood clot. Denies any nausea vomiting or other constitutional symptoms. Discussion with transferring physician she reports that patient has been having intermittent episodes of supraventricular tachycard ia. She was started on Cardizem drip with conversion to normal sinus rhythm. Patient denies any lower extremity symptoms. Past Medical History: Lung mass suspicious for lung cancer, COPD, pneumonia, GERD, hiatal hernia, atrial flutter, hyponatremia Past Surgical History: Hiatal hernia repair, hysterectomy, appendectomy, rotator cuff surgery, facial surgery, colonoscopy Social History: Remote history of smoking, occasional EtOH Family History: reviewed and noncontributory The ROS documented in this emergency department record has been reviewed and confirmed by me. Those systems with pertinent positive or negative responses have been documented in the HPI. All other systems are other negative and/or noncontributory. - Related Data Home Medications Medication Instructions Recorded Confirmed Albuterol Sulfate [Proair Hfa] 2 puff INHALATION RT-Q6H PRN 07/06/15 09/06/17 Budesonide/Formoterol Fumarate 2 puff INHALATION RT-BID 07/06/15 09/06/17 [Symbicort 160-4.5 Mcg Inhaler] Calcium Carbonate [Calcium] 500 mg PO DAILY 07/06/15 09/06/17 Latanoprost [Xalatan 0.005%] 1 drop BOTH EYES HS 07/06/15 09/06/17 Tiotropium [place] [Spiriva] 1 puff INHALATION RT-DAILY 07/06/15 09/06/17 Diltiazem HCl 30 mg PO BID 09/09/15 09/06/17 Ipratropium-Albuterol Nebulize 3 ml INHALATION RT-QID 04/17/17 09/06/17 [Duoneb 0.5 mg-3 mg/3 ml Soln] Levothyroxine Sodium [Levoxyl] 112 mcg PO DAILY 04/17/17 09/06/17 Alendronate Sodium [Fosamax] 70 mg PO WE 07/19/17 09/06/17 Aspirin [Adult Low Dose Aspirin EC] 81 mg PO DAILY 07/19/17 09/06/17 Selenium 200 mcg PO DAILY 07/19/17 09/06/17 Sodium Chloride Tab 1 gram PO BID 07/19/17 09/06/17 Timolol 0.5% Ophth Soln [Timoptic 1 drop BOTH EYES BID 07/19/17 09/06/17 0.5% Ophth Soln] Cholecalciferol [Vitamin D3] 1,000 unit PO DAILY 09/06/17 09/06/17 Furosemide [Lasix] 20 mg PO BID 09/06/17 09/06/17 busPIRone HCL 5 mg PO BID 09/06/17 09/06/17 Allergies Allergy/AdvReac Type Severity Reaction Status Date / Time doxycycline Allergy SICK, DIZZY Verified 09/06/17 18:01 morphine Allergy Nausea & Verified 09/06/17 18:01 Vomiting Review of Systems ROS Statement: Those systems with pertinent positive or pertinent negative responses have been documented in the HPI. ROS Other: All systems not noted in ROS Statement are negative. Past Medical History Past Medical History: COPD, Eye Disorder, GERD/Reflux, Skin Disorder, Thyroid Disorder Additional Past Medical History / Comment(s): HX TACHYCARDIA. GLAUCOMA NILS. hxHiatal Hernia. Using Oxygen, 2L NC PRN. RECENT EXAC OF COPD. low sodium History of Any Multi-Drug Resistant Organisms: MRSA Date of last positivie culture/infection: 04/19/17 MDRO Source:: BRONCH WASH Past Surgical History: Adenoidectomy, Appendectomy, Hernia Repair, Hysterectomy , Orthopedic Surgery, Tonsillectomy Additional Past Surgical History / Comment(s): Nils Cataract, RT Torn Rotator Cuff Repair, Nasal Surgery, 01-07-16 lap viktoria fundoplasty, bronchoscopy 04-19-17 Past Anesthesia/Blood Transfusion Reactions: No Reported Reaction Past Psychological History: Anxiety Smoking Status: Former smoker Past Alcohol Use History: None Reported Past Drug Use History: None Reported - Past Family History Mother Family Medical History: CVA/TIA Father Family Medical History: Hypertension, Myocardial Infarction ([place]) Brother(s) Family Medical History: Cancer Additional Family Medical History / Comment(s): X3 BROTHERS General Exam - General Exam Comments Initial Comments: Vitals: Vital signs upon arrival are within acceptable limits. PHYSICAL EXAM: General Impression: Alert and oriented x3, not in acute distress HEENT: Normocephalic atraumatic, extra-ocular movements intact, pupils equal and reactive to light bilaterally, mucous membranes moist. Cardiovascular: Heart regular rate and rhythm, S1&S2 audible, no murmurs, rubs or gallops Chest: Lungs clear to auscultation bilaterally, no rhonchi, no wheeze, no rales Abdomen: Bowel sounds present, abdomen soft, non-tender, non-distended, no organomegaly Musculoskeletal: Pulses present and equal in all extremities, no peripheral edema Motor: Power 5/5 bilaterally, no focal deficits noted Neurological: CN II-XII grossly intact, no focal motor or sensory deficits noted Skin: Intact with no visualized rashes Psych: Normal affect and mood Limitations: no limitations Course Vital Signs 09/06/17 09/06/17 09/06/17 17:36 18:15 18:58 Temperature 98.3 F Pulse Rate 83 84 83 Respiratory 18 20 18 Rate Blood Pressure 172/86 157/78 156/74 O2 Sat by Pulse 100 100 100 Oximetry Medical Decision Making - Medical Decision Making ED course: 77-year-old female past medical history of COPD and lung mass presents with dizziness and shortness of breath. Patient was transferred from outside facility for intermittent supraventricular tachycardia. Patient was started on Cardizem drip at outside facility. Documentation from that facility was reviewed by myself. Patient was evaluated at bedside as soon as she arrived. Patient appeared to be in stable condition. She was normal sinus rhythm on the monitor. Patient was not in acute distress. Given sugars of breath and recent diagnosis of lung mass concerning for cancer and new-onset supraventricular tachycardia that is intermittent there is some concern that patient's symptoms represent pulmonary embolus. CT angios the chest was obtained not showing any pulmonary embolus. There is some consolidation at the right lung area patient having any symptoms of pneumonia and she does not have a cough or no leukocytosis. She is afebrile. We will obtain blood cultures. Patient be admitted to Dr. Miranda who is willing to accept admission. Cardiology on consult. Patient be admitted to cardiac telemetry. Patient is understandable and agreeable to plan. EKG Interpretation: A 12 lead EKG was obtained. It was interpreted by myself and attending physician. There is a P wave before every QRS complex. Rate is 83. Rhythm is normal sinus rhythm, NE interval 140, care surgeon 80, QTc 441. QT is not prolonged. No ST segment depression or elevation. Overall, this EKG is unremarkable - Lab Data Result diagrams: 09/06/17 17:50 09/06/17 17:50 Lab Results 09/06/17 09/06/17 09/06/17 Range/Units 17:50 17:50 17:50 WBC 9.4 (3.8-10.6) k/uL RBC 3.72 L (3.80-5.40) m/uL Hgb 11.8 (11.4-16.0) gm/dL Hct 37.4 (34.0-46.0) % MCV 100.7 H (80.0-100.0) fL MCH 31.7 (25.0-35.0) pg MCHC 31.5 (31.0-37.0) g/dL RDW 13.8 (11.5-15.5) % Plt Count 632 H (150-450) k/uL Neutrophils % 75 % Lymphocytes % 13 % Monocytes % 10 % Eosinophils % 1 % Basophils % 0 % Neutrophils # 7.1 (1.3-7.7) k/uL Lymphocytes # 1.2 (1.0-4.8) k/uL Monocytes # 0.9 (0-1.0) k/uL Eosinophils # 0.1 (0-0.7) k/uL Basophils # 0.0 (0-0.2) k/uL Macrocytosis Slight Sodium 137 (137-145) mmol/L Potassium 3.9 (3.5-5.1) mmol/L Chloride 98 (98-107) mmol/L Carbon Dioxide 28 (22-30) mmol/L Anion Gap 11 mmol/L BUN 5 L (7-17) mg/dL Creatinine 0.50 L (0.52-1.04) mg/dL Est GFR (CKD-EPI)AfAm >90 (>60 ml/min/1.73 sqM) Est GFR (CKD-EPI)NonAf >90 (>60 ml/min/1.73 sqM) Glucose 124 H (74-99) mg/dL Calcium 9.1 (8.4-10.2) mg/dL Magnesium 1.9 (1.6-2.3) mg/dL Troponin I <0.012 (0.000-0.034) ng/mL Disposition Clinical Impression: Arrhythmia Disposition: ADMITTED IP TO THIS HOSP Condition: Fair Referrals: Zeb Brar MD [Primary Care Provider] - 1-2 days Time of Disposition: 20:21
--- NOTE | 2017-09-06 20:08 | CT ---
EXAMINATION TYPE: CT angio chest DATE OF EXAM: 09/06/2017 7:41 PM COMPARISON: 07/19/2017 HISTORY: Dizziness today, possible SVT. CT DLP: 139.3 mGycm Automated exposure control for dose reduction was used. CONTRAST: CTA scan of the thorax is performed with IV Contrast, patient injected with 70 mL of Isovue 370, pulm onary embolism protocol. There are 3-D post processed images.. FINDINGS: There is diffuse pulmonary emphysema. There is a 4 cm mass at the anterior aspect right pulmonary hil um. Heart size is normal. There is no pericardial effusion. There is some right middle lobe consolida tion and atelectasis. I see no filling defects in the pulmonary arteries. Thoracic aorta is atheromat ous. There is no evidence of aneurysm or dissection. There is no pleural effusion. There is anterior wedging of T10 and T9 vertebra with 25% loss of height. This appears old. IMPRESSION: RIGHT UPPER LOBE MASS AT THE RIGHT PULMONARY HILUM CONSISTENT WITH MALIGNANCY THAT IS SLIGHTLY INCREA SED IN SIZE COMPARED TO OLD EXAM. NO EVIDENCE OF PULMONARY EMBOLISM. DIFFUSE PULMONARY EMPHYSEMA. RIG HT MIDDLE LOBE CONSOLIDATION AND ATELECTASIS WITHOUT CHANGE.
[2017-09-06] MEDS ORDERED: NALOXONE 0.4 MG/ML 1 ML VIAL IV PRN (20:15)
[2017-09-06] MEDS ORDERED: SODIUM CHLORIDE 0.9% 1,000 ML IV SCH (20:15)
[2017-09-06] MEDS ORDERED: LATANOPROST 0.005% OPHTH DROPS 2.5 ML BTL BOTH EYES SCH (21:00)
[2017-09-06 21:55] VITALS: BMI 22.5
[2017-09-06] MEDS: SODIUM CHLORIDE TAB 1 GM TAB PO SCH (22:39)
[2017-09-06] MEDS: TIMOLOL 0.5% OPHTH DROPS 5 ML BTL BOTH EYES SCH (22:41)
[2017-09-06] MEDS: HEPARIN SODIUM,PORCINE 5,000 UNIT/ML 1 ML VIAL SQ SCH (23:08)
[2017-09-06 23:35] LABS: Appearance,Urine Clear (Clear); Bilirubin,Urine Negative (Negative); Blood,Urine Negative (Negative); Color,Urine Yellow; Glucose,Urine (UA) Negative (Negative); Ketones,Urine Negative (Negative); Leukocyte Esterase,Urine Negative (Negative); Nitrite,Urine Negative (Negative); PH, Urine 7.5 (5.0-8.0); Protein,Urine Negative (Negative); Specific Gravity,Urine 1.041 (1.001-1.035); Urobilinogen,Urine <2.0 mg/dL (<2.0)
[2017-09-07] MEDS ORDERED: LEVOTHYROXINE 112 MCG TAB PO SCH (06:30)
[2017-09-07 06:34] LABS: Anion Gap 10 mmol/L; Blood Urea Nitrogen 6 mg/dL (7-17); Calcium 8.8 mg/dL (8.4-10.2); Carbon Dioxide 28 mmol/L (22-30); Chloride 99 mmol/L (98-107); Glucose 88 mg/dL (74-99); Potassium 3.9 mmol/L (3.5-5.1); Sodium 137 mmol/L (137-145)
[2017-09-07 06:38] LABS: Basophils % (A) 0 %; Eosinophils # (A) 0.1 k/uL (0-0.7); Eosinophils % (A) 1 %; HCT 32.2 % (34.0-46.0); HGB 10.5 gm/dL (11.4-16.0); Lymphocytes # (A) 1.3 k/uL (1.0-4.8); Lymphocytes % (A) 20 %; MCH 32.6 pg (25.0-35.0); MCHC 32.5 g/dL (31.0-37.0); MCV 100.4 fL (80.0-100.0); Macrocytosis Slight; Mean Platelet Volume 6.4; Monocytes # (A) 0.9 k/uL (0-1.0); Monocytes % (A) 13 %; Neutrophils # (A) 4.3 k/uL (1.3-7.7); Neutrophils % (A) 64 %; Platelet Count 506 k/uL (150-450); RBC 3.21 m/uL (3.80-5.40); RDW 13.6 % (11.5-15.5); WBC 6.7 k/uL (3.8-10.6)
[2017-09-07] MEDS: DILTIAZEM 50 MG in SODIUM CHLORIDE 0.9% 40 ML IV SCH (07:03)
[2017-09-07] MEDS: IPRATROPIUM-ALBUTEROL 3 ML NEB INHALATION SCH ×3 (07:52→15:58)
[2017-09-07] MEDS: TIMOLOL 0.5% OPHTH DROPS 5 ML BTL BOTH EYES SCH (08:40)
[2017-09-07] MEDS: HEPARIN SODIUM,PORCINE 5,000 UNIT/ML 1 ML VIAL SQ SCH ×2 (08:40→15:25)
[2017-09-07] MEDS: SODIUM CHLORIDE TAB 1 GM TAB PO SCH (08:40)
[2017-09-07] MEDS ORDERED: ASPIRIN 81 MG PO SCH (09:00)
[2017-09-07] MEDS ORDERED: DILTIAZEM CD 120 MG CAP.ER.24H PO SCH (09:00)
--- NOTE | 2017-09-07 09:11 | CONS ---
SONIA Valdovinos is a 77-year-old lady who was admitted to the hospital with an episode of SVT. She has history of lung cancer, COPD, hiatal hernia, status post surgery and presented to [facility] with symptoms of palpitations and dizziness. She had SVT and subsequently got transferred to [facility]. She was treated with intravenous Cardizem and subsequently converted to sinus rhythm. She has a lung mass and is currently being worked up for the same. Since admission, she has done well. One set of troponin is negative. EKG shows normal sinus rhythm. PAST MEDICAL HISTORY: Significant for CA lung, COPD, pneumonia, GERD, hiatal hernia. PAST SURGICAL HISTORY: Significant for hysterectomy, appendectomy, hiatal hernia surgery. SOCIAL HISTORY: Remote history of smoking. FAMILY HISTORY: Negative for premature coronary artery disease. REVIEW OF SYSTEMS: HEENT is unremarkable. CARDIAC: As described above. RESPIRATORY: As described above. GI: Negative. GENITOURINARY: Negative. ALLERGY/IMMUNOLOGY: Negative. MUSCULOSKELETAL: Significant for arthritis. PSYCHOSOCIAL: Negative. ENDOCRINE: Negative. HEMATOLOGICAL: Negative. DERM: Negative. CONSTITUTIONAL: Negative. ONCOLOGICAL: Negative. Rest of the system review is not relevant. CURRENT MEDICATIONS: Current medications include aspirin, Spiriva, DuoNeb, levothyroxine. ALLERGIES: Allergic to MORPHINE and DOXYCYCLINE. REVIEW OF SYSTEMS: Review of systems is 12/13 review of systems has been performed and pertinent are as documented. PHYSICAL EXAMINATION: On exam, comfortable at rest. Vital signs are stable. There is no jugular venous distention. Carotid upstroke is normal. There is no bruit. Chest exam reveals good air entry bilaterally. Heart exam reveals first and second heart sounds. No gallop. No murmur. Abdomen is soft, nontender. Examination of extremities did not reveal any edema. Peripheral pulses are felt. ASSESSMENT: Paroxysmal supraventricular tachycardia. PLAN: Patient is doing well. I will obtain a 2-D echo to assess her LV function. Stop the Cardizem and start her on Cardizem CD. From cardiac standpoint, she is stable to be discharged and does not require any further workup. MMODL / IJN: [id number] /
[2017-09-07] MEDS ORDERED: SYMBICORT 160-4.5 MCG INHALER INHALATION SCH ×2 (10:44→20:00)
[2017-09-07 11:33] VITALS: TEMP 98.6
--- NOTE | 2017-09-07 11:34 | ECHOF ---
Referral Reason:svt MEASUREMENTS -------- HEIGHT: 154.9 cm WEIGHT: 54.0 kg BP: IVSd: 1.0 cm (0.6 - 1.1) LVIDd: 3.3 cm (3.9 - 5.3) LVPWd: 0.7 cm (0.6 - 1.1) IVSs: 1.5 cm LVIDs: 1.8 cm LVPWs: 1.4 cm Ao Diam: 3.2 cm (2.0 - 3.7) AV Cusp: 1.1 cm (1.5 - 2.6) LA Diam: 2.4 cm (2.7 - 3.8) MV E Hernan: 0.89 m/s MV DecT: 257 ms MV A Hernan: 0.79 m/s MV E/A Ratio: 1.12 AV maxP.53 mmHg AV meanP.36 mmHg RAP: 5.00 mmHg RVSP: 34.27 mmHg FINDINGS -------- Atrial fibrillation. This was a technically good study. The left ventricular size is normal. There is borderline concentric left ventricular hypertrophy. Overall left ventricular systolic function is normal with, an EF between 55 - 60 %. The right ventricle is normal in size and function. The left atrium is normal in size. The right atrium is normal in size. Aortic valve is trileaflet and is mildly thickened. There is mild aortic valve sclerosis. The mitral valve leaflets are mildly thickened. Mild mitral regurgitation is present. Mild tricuspid regurgitation present. The right ventricular systolic pressure, as measured by Doppl er, is 34.27mmHg. Pulmonic valve appears structurally normal. The aortic root size is normal. Normal inferior vena cava with normal inspiratory collapse consistent with estimated right atrial pre ssure of 5 mmHg. The pericardium is normal. CONCLUSIONS -------- 1. Atrial fibrillation. 2. This was a technically good study. 3. The left ventricular size is normal. 4. There is borderline concentric left ventricular hypertrophy. 5. Overall left ventricular systolic function is normal with, an EF between 55 - 60 %. 6. The right ventricle is normal in size and function. 7. The left atrium is normal in size. 8. The right atrium is normal in size. 9. Aortic valve is trileaflet and is mildly thickened. 10. There is mild aortic valve sclerosis. 11. The mitral valve leaflets are mildly thickened. 12. Mild mitral regurgitation is present. 13. Mild tricuspid regurgitation present. 14. The right ventricular systolic pressure, as measured by Doppler, is 34.27mmHg. 15. Pulmonic valve appears structurally normal. 16. The aortic root size is normal. 17. Normal inferior vena cava with normal inspiratory collapse consistent with estimated right atrial pressure of 5 mmHg. 18. The pericardium is normal. TELEPHONE SUPERVISOR: Kathy Isbell RDCS
--- NOTE | 2017-09-07 12:31 | P.HPIM ---
History of Present Illness 77-year-old female was transferred from [facility] after she presented with dizziness found to be in SVT yesterday resolved, unsure whether she received adenosine. Patient was put on Cardizem IV Cardizem was discontinued patient was started on oral Cardizem. Patient had an echocardiogram today which showed normal ejection fraction no wall motion abnormalities. Patient is doing well wanted to be discharged. Her other medical issues significant ones being hypothyroidism and repeat a TSH is bit elevated but I'm not increasing her levothyroxine because of this episode of SVT and TSH need to be repeated in about 2 weeks to a month and depending on the TSH can titrate levothyroxine. Patient's Cardizem dose was recently decreased as she was complaining of headache. Patient will be discharged on 120 mg of Cardizem. Patient does have history of COPD uses oxygen as needed at home. Patient has decreased air entry into bilateral lung bowles although her respiratory status is at her baseline the other issue is patient is being evaluated for lung cancer CAT scan did show the left mass which is increasing in size has a follow- up today with Dr. Tinoco, patient will follow pulse hour before she goes to her home town so patient will be discharged later in the day to directly go to oncology clinic. Review of Systems REVIEW OF SYSTEMS: CONSTITUTIONAL: No fever, no malaise, no fatigue. HEENT: No recent visual problems or hearing problems. Denied any sore throat. CARDIOVASCULAR: No chest pain, orthopnea, PND, no palpitations, no syncope. PULMONARY: No shortness of breath, no cough, no hemoptysis. GASTROINTESTINAL: No diarrhea, no nausea, no vomiting, no abdominal pain. Normoactive bowel sounds. NEUROLOGICAL: No headaches, no weakness, no numbness. HEMATOLOGICAL: Denies any bleeding or petechiae. GENITOURINARY: Denies any burning micturition, frequency, or urgency. MUSCULOSKELETAL/RHEUMATOLOGICAL: Denies any joint pain, swelling, or any muscle pain. ENDOCRINE: Denies any polyuria or polydipsia. The rest of the 14-point review of systems is negative. Past Medical History Past Medical History: COPD, Eye Disorder, GERD/Reflux, Skin Disorder, Thyroid Disorder Additional Past Medical History / Comment(s): HX TACHYCARDIA. GLAUCOMA NILS. hxHiatal Hernia. Using Oxygen, 2L NC PRN. RECENT EXAC OF COPD. low sodium History of Any Multi-Drug Resistant Organisms: MRSA Date of last positivie culture/infection: 04/19/17 MDRO Source:: BRONCH WASH Past Surgical History: Adenoidectomy, Appendectomy, Hernia Repair, Hysterectomy , Orthopedic Surgery, Tonsillectomy Additional Past Surgical History / Comment(s): Nils Cataract, RT Torn Rotator Cuff Repair, Nasal Surgery, 01-07-16 lap viktoria fundoplasty, bronchoscopy 04-19-17 Past Anesthesia/Blood Transfusion Reactions: No Reported Reaction Past Psychological History: Anxiety Additional Psychological History / Comment(s): R/T BREATHING PROB OCC Smoking Status: Former smoker Past Alcohol Use History: None Reported Additional Past Alcohol Use History / Comment(s): smoking: started 1958 - 2007, 1 PPD OR LESS. Past Drug Use History: None Reported - Past Family History Mother Family Medical History: CVA/TIA Father Family Medical History: Hypertension, Myocardial Infarction ([place]) Brother(s) Family Medical History: Cancer Additional Family Medical History / Comment(s): X3 BROTHERS Medications and Allergies Home Medications Medication Instructions Recorded Confirmed Type Albuterol Sulfate [Proair Hfa] 2 puff INHALATION RT-Q6H PRN 07/06/15 09/06/17 History Budesonide/Formoterol Fumarate 2 puff INHALATION RT-BID 07/06/15 09/06/17 History [Symbicort 160-4.5 Mcg Inhaler] Calcium Carbonate [Calcium] 500 mg PO DAILY 07/06/15 09/06/17 History Latanoprost [Xalatan 0.005%] 1 drop BOTH EYES HS 07/06/15 09/06/17 History Tiotropium [place] [Spiriva] 1 puff INHALATION RT-DAILY 07/06/15 09/06/17 History Ipratropium-Albuterol Nebulize 3 ml INHALATION RT-QID 04/17/17 09/06/17 History [Duoneb 0.5 mg-3 mg/3 ml Soln] Levothyroxine Sodium [Levoxyl] 112 mcg PO DAILY 04/17/17 09/06/17 History Alendronate Sodium [Fosamax] 70 mg PO WE 07/19/17 09/06/17 History Aspirin [Adult Low Dose Aspirin EC] 81 mg PO DAILY 07/19/17 09/06/17 History Selenium 200 mcg PO DAILY 07/19/17 09/06/17 History Sodium Chloride Tab 1 gram PO BID 07/19/17 09/06/17 History Timolol 0.5% Ophth Soln [Timoptic 1 drop BOTH EYES BID 07/19/17 09/06/17 History 0.5% Ophth Soln] Cholecalciferol [Vitamin D3] 1,000 unit PO DAILY 09/06/17 09/06/17 History Furosemide [Lasix] 20 mg PO BID 09/06/17 09/06/17 History busPIRone HCL 5 mg PO BID 09/06/17 09/06/17 History Diltiazem Cd [Cardizem CD] 120 mg PO DAILY #30 cap.er.24h 09/07/17 Rx Allergies Allergy/AdvReac Type Severity Reaction Status Date / Time doxycycline Allergy SICK, DIZZY Verified 09/06/17 18:01 morphine Allergy Nausea & Verified 09/06/17 18:01 Vomiting Physical Exam Vitals: Vital Signs Temp Pulse Pulse Resp BP BP Pulse Ox 09/07/17 11:50 79 09/07/17 11:40 78 09/07/17 11:27 98.6 F 69 16 125/61 97 09/07/17 08:24 97.9 F 87 16 127/57 99 09/07/17 08:03 77 09/07/17 08:00 87 16 09/07/17 07:53 76 09/07/17 03:57 95 17 09/07/17 03:54 96.5 F L 95 17 132/68 99 09/07/17 00:00 84 18 09/06/17 23:09 97.3 F L 84 18 146/67 99 09/06/17 20:34 97.1 F L 105 H 17 137/70 97 09/06/17 20:30 98.3 F 82 20 156/65 98 09/06/17 18:58 83 18 156/74 100 09/06/17 18:15 84 20 157/78 100 09/06/17 17:36 98.3 F 83 18 172/86 100 Intake and Output 09/06/17 09/07/17 09/07/17 22:59 06:59 14:59 Intake Total 218.333 720 281.667 Output Total 200 300 Balance 218.333 520 -18.333 Intake: Intake, IV Titration 18.333 320 45.667 Amount Diltiazem 50 mg In Sodium 18.333 45.667 Chloride 0.9% 40 ml @ 5 MG/HR 5 mls/hr IV .Q10H ALONDRA Rx#:[id number] Sodium Chloride 0.9% 1, 180 000 ml @ 20 mls/hr IV . Q24H ALONDRA Rx#:[id number] Sodium Chloride 0.9% 500 140 ml @ 20 mls/hr IV .Q24H STA Rx#:[id number] Oral 200 400 236 Output: Urine 200 300 Other: Voiding Method Toilet Toilet # Voids 1 2 Weight 54.1 kg 54.1 kg PHYSICAL EXAMINATION: GENERAL: The patient is alert and oriented x3, not in any acute distress. Well developed, well nourished. HEENT: Pupils are round and equally reacting to light. EOMI. No scleral icterus. No conjunctival pallor. Normocephalic, atraumatic. No pharyngeal erythema. No thyromegaly. CARDIOVASCULAR: S1 and S2 present. No murmurs, rubs, or gallops. PULMONARY: Decreased air entry into bilateral lung bowles. ABDOMEN: Soft, nontender, nondistended, normoactive bowel sounds. No palpable organomegaly. MUSCULOSKELETAL: No joint swelling or deformity. EXTREMITIES: No cyanosis, clubbing, or pedal edema. NEUROLOGICAL: Gross neurological examination did not reveal any focal deficits. SKIN: No rashes. Results CBC & Chem 7: 09/07/17 05:47 09/07/17 05:47 Labs: Abnormal Lab Results - Last 24 Hours (Table) 09/06/17 09/06/17 09/06/17 Range/Units 17:50 17:50 23:21 RBC 3.72 L (3.80-5.40) m/uL Hgb (11.4-16.0) gm/dL Hct (34.0-46.0) % MCV 100.7 H (80.0-100.0) fL Plt Count 632 H (150-450) k/uL BUN 5 L (7-17) mg/dL Creatinine 0.50 L (0.52-1.04) mg/dL Glucose 124 H (74-99) mg/dL TSH (0.465-4.680) mIU/L Ur Specific [place] 1.041 H (1.001-1.035) 09/07/17 09/07/17 09/07/17 Range/Units 05:47 05:47 05:47 RBC 3.21 L (3.80-5.40) m/uL Hgb 10.5 L (11.4-16.0) gm/dL Hct 32.2 L (34.0-46.0) % MCV 100.4 H (80.0-100.0) fL Plt Count 506 H (150-450) k/uL BUN 6 L (7-17) mg/dL Creatinine (0.52-1.04) mg/dL Glucose (74-99) mg/dL TSH 4.990 H (0.465-4.680) mIU/L Ur Specific [place] (1.001-1.035) Thrombosis Risk Factor Assmnt - Choose All That Apply Each Risk Factor Represents 3 Points: Age 75 years or older Thrombosis Risk Factor Assessment Total Risk Factor Score: 3 Thrombosis Risk Factor Assessment Level: Moderate Risk Assessment and Plan Plan: -Episode of super ventricular tachycardia: Resolved reason the dose of Cardizem as mentioned above -COPD without any acute exacerbation -Hypothyroidism levothyroxine dosing as mentioned above -Gastroesophageal reflux disease -Possible lung cancer for which patient has a follow-up with oncology as mentioned above -Anxiety disorder.
--- NOTE | 2017-09-07 12:32 | P.DS ---
Providers Date of admission: 09/06/17 20:15 Attending physician: Daniele Miranda Consults: 09/06/17 20:17 Consult Physician Routine Consulting Provider: Mitchell Freeman Consult Reason/Comments: SVT Do you want consulting provider notified?: Yes, Notify in am Primary care physician: Zeb Simmons [facility] Course: Refer to my HPI Patient Condition at Discharge: Fair Plan - Discharge Summary Discharge Rx Participant: No New Discharge Prescriptions: New Diltiazem Cd [Cardizem CD] 120 mg PO DAILY #30 cap.er.24h Continue Budesonide/Formoterol Fumarate [Symbicort 160-4.5 Mcg Inhaler] 2 puff INHALATION RT-BID Calcium Carbonate [Calcium] 500 mg PO DAILY Latanoprost [Xalatan 0.005%] 1 drop BOTH EYES HS Tiotropium [place] [Spiriva] 1 puff INHALATION RT-DAILY Albuterol Sulfate [Proair Hfa] 2 puff INHALATION RT-Q6H PRN PRN Reason: Shortness Of Breath Levothyroxine Sodium [Levoxyl] 112 mcg PO DAILY Ipratropium-Albuterol Nebulize [Duoneb 0.5 mg-3 mg/3 ml Soln] 3 ml INHALATION RT-QID Timolol 0.5% Ophth Soln [Timoptic 0.5% Ophth Soln] 1 drop BOTH EYES BID Selenium 200 mcg PO DAILY Aspirin [Adult Low Dose Aspirin EC] 81 mg PO DAILY Alendronate Sodium [Fosamax] 70 mg PO WE Sodium Chloride Tab 1 gram PO BID Furosemide [Lasix] 20 mg PO BID Cholecalciferol [Vitamin D3] 1,000 unit PO DAILY busPIRone HCL 5 mg PO BID Discontinued Diltiazem HCl 30 mg PO BID Discharge Medication List Albuterol Sulfate [Proair Hfa] 2 puff INHALATION RT-Q6H PRN 07/06/15 [History] Budesonide/Formoterol Fumarate [Symbicort 160-4.5 Mcg Inhaler] 2 puff INHALATION RT-BID 07/06/15 [History] Calcium Carbonate [Calcium] 500 mg PO DAILY 07/06/15 [History] Latanoprost [Xalatan 0.005%] 1 drop BOTH EYES HS 07/06/15 [History] Tiotropium [place] [Spiriva] 1 puff INHALATION RT-DAILY 07/06/15 [History] Ipratropium-Albuterol Nebulize [Duoneb 0.5 mg-3 mg/3 ml Soln] 3 ml INHALATION RT -QID 04/17/17 [History] Levothyroxine Sodium [Levoxyl] 112 mcg PO DAILY 04/17/17 [History] Alendronate Sodium [Fosamax] 70 mg PO WE 07/19/17 [History] Aspirin [Adult Low Dose Aspirin EC] 81 mg PO DAILY 07/19/17 [History] Selenium 200 mcg PO DAILY 07/19/17 [History] Sodium Chloride Tab 1 gram PO BID 07/19/17 [History] Timolol 0.5% Ophth Soln [Timoptic 0.5% Ophth Soln] 1 drop BOTH EYES BID [History] Cholecalciferol [Vitamin D3] 1,000 unit PO DAILY 09/06/17 [History] Furosemide [Lasix] 20 mg PO BID 09/06/17 [History] busPIRone HCL 5 mg PO BID 09/06/17 [History] Diltiazem Cd [Cardizem CD] 120 mg PO DAILY #30 cap.er.24h 09/07/17 [Rx] Follow up Appointment(s)/Referral(s): Zeb Brar MD [Primary Care Provider] - 3 Days Discharge Disposition: HOME SELF-CARE
[2017-09-07 12:42] LABS: T4, Free (Free Thyroxine) 1.54 ng/dL (0.78-2.19)
[2017-09-07 15:21] VITALS: BP 143/76
[2017-09-07 16:01] VITALS: RESP 16
[2017-09-07 16:11] VITALS: PULSE 79
== END 2017-09-07 17:06 | disposition home or self-care (01) | DRG 310 ==
LOC: EC 17:34 → 6SEL 20:15
PROVIDERS: ADMIT Internal Medicine; ATTEND Internal Medicine
DX: I47.1 Supraventricular tachycardia (principal); E03.9 Hypothyroidism, unspecified; F41.9 Anxiety disorder, unspecified; H40.9 Unspecified glaucoma; J44.9 Chronic obstructive pulmonary disease, unspecified; K21.9 Gastro-esophageal reflux disease without esophagitis; Z79.51 Long term (current) use of inhaled steroids; Z79.82 Long term (current) use of aspirin; Z79.83 Long term (current) use of bisphosphonates; Z82.49 Family history of ischemic heart disease and other diseases of the circulatory system; Z85.118 Personal history of other malignant neoplasm of bronchus and lung; Z87.891 Personal history of nicotine dependence; Z90.710 Acquired absence of both cervix and uterus; Z88.1 Allergy status to other antibiotic agents; Z88.5 Allergy status to narcotic agent; Z98.42 Cataract extraction status, left eye; Z98.41 Cataract extraction status, right eye; Z79.890 Hormone replacement therapy; I48.92 Unspecified atrial flutter; K44.9 Diaphragmatic hernia without obstruction or gangrene; Z86.14 Personal history of Methicillin resistant Staphylococcus aureus infection
CPT/HCPCS: 36415; 71275; 80048; 81003; 83735; 84439; 84443; 84484; 85025; 85379; 87040; 93005; 93306; 94640; 96365; 96366; 99285